=== PATIENT | female | born 1985 | race African-American/Black ===

== ENCOUNTER 2018-10-17 12:43 | Emergency (ER) | payer SELFPAY ==
[~2018-10-17] VITALS: Ht 154.9 cm; Wt 61.2 kg
[2018-10-17] MEDS ORDERED: HYDROCODONE/APAP 5-325MG TABLET ONE (13:09)
[2018-10-17] MEDS ORDERED: HYDROCODONE/APAP 5-325MG TABLET PO ONE (13:15)
--- NOTE | 2018-10-17 13:18 | NUR ---
patient was seen by md. pain medicine given as ordered.
--- NOTE | 2018-10-17 13:19 | NUR ---
DC, RX (including precautions) AND FOLLOW UP INSTRUCTIONS GIVEN AND EXPLAINED TO PATIENT WHO STATES SHE UNDERSTANDS ALL INSTRUCTIONS.
== END 2018-10-17 13:22 | disposition home or self-care (01) ==
LOC: ER 12:43
DX: K08.89 Other specified disorders of teeth and supporting structures (principal); K02.9 Dental caries, unspecified; F17.200 Nicotine dependence, unspecified, uncomplicated
CPT/HCPCS: A4663

== ENCOUNTER 2018-10-24 15:57 | Emergency (ER) | payer MEDICAID ==
[~2018-10-24] VITALS: Ht 154.9 cm; Wt 61.7 kg
--- NOTE | 2018-10-24 16:50 | NUR ---
patient seen by
[2018-10-24] MEDS ORDERED: HYDROCODONE/APAP 5-325MG TABLET PO ONE (17:00)
[2018-10-24] MEDS ORDERED: HYDROCODONE/APAP 5-325MG TABLET ONE (17:08)
--- NOTE | 2018-10-24 17:08 | NUR ---
Patient medicated for pain, dcd instructions and prescription given, pt. verbalized understanding to follow up with dentist. A list of [facility] dental clinics given to patient. Pt. left room ambulatory [id number].
[2018-10-24 17:10] VITALS: BP 120/62
== END 2018-10-24 17:11 | disposition home or self-care (01) ==
LOC: ER 15:59
DX: K08.89 Other specified disorders of teeth and supporting structures (principal); F17.200 Nicotine dependence, unspecified, uncomplicated
CPT/HCPCS: A4663